=== PATIENT | male | born 1970 | race Caucasian/White ===

== ENCOUNTER 2024-12-29 01:00 | Inpatient (IN) | payer OTHER ==
[~2024-12-29] VITALS: Ht 185.4 cm; Wt 107.4 kg
[2024-12-29 01:29] LABS: BASOPHILS # (AUTO) 0.1 K/uL (0.0-0.2); BASOPHILS % (AUTO) 0.8 % (0.0-2.0); EOSINOPHILS # (AUTO) 0.2 K/uL (0.0-0.7); EOSINOPHILS % (AUTO) 2.1 % (0.0-6.0); HEMATOCRIT 49 % (39-51); HEMOGLOBIN 16.7 g/dL (13.5-17.5); LYMPHOCYTES # (AUTO) 3.4 K/uL (0.8-4.8); LYMPHOCYTES % (AUTO) 34.7 % (20.0-44.0); MEAN CORPUSCULAR HEMOGLOBIN 31 PG (26.0-33.0); MEAN CORPUSCULAR HGB CONC 34 g/dl (31.0-36.0); MEAN CORPUSCULAR VOLUME 92 fL (80-96); MONOCYTES # (AUTO) 0.7 K/uL (0.1-1.30); MONOCYTES % (AUTO) 7.4 % (2.0-12.0); NEUTROPHILS # (AUTO) 5.3 K/uL (1.8-8.9); PLATELET COUNT (AUTO) 229 K/uL (150-450); RED BLOOD CELL COUNT(AUTO) 5.33 MIL/uL (4.5-6.0); RED CELL DISTRIBUTION WIDTH 13.5 % (11.5-15.0); WHITE BLOOD COUNT (AUTO) 9.7 K/uL (4.3-11.0)
[2024-12-29] MEDS ORDERED: METOPROLOL TARTRATE INJ 5 MG/5 ML AMPUL ONE (01:46)
[2024-12-29] MEDS ORDERED: METOPROLOL TARTRATE 25 MG TABLET ONE (01:47)
[2024-12-29 01:55] LABS: CALCIUM, SERUM 9.7 mg/dL (8.5-10.1); CARBON DIOXIDE 30 mmol/L (21-32); CHLORIDE 100 mmol/L (98-107); CREATININE 1.1 mg/dL (0.6-1.3); GLUCOSE 266 mg/dL (74-106); POTASSIUM 3.9 mmol/L (3.5-5.1); SODIUM SERUM 141 mmol/L (136-145); UREA NITROGEN, BLOOD 14 mg/dL (7-18)
[2024-12-29] MEDS: METOPROLOL TARTRATE 25 MG TABLET PO ONE (02:00)
[2024-12-29] MEDS: METOPROLOL TARTRATE INJ 5 MG/5 ML AMPUL IV ONE (02:00)
[2024-12-29] MEDS ORDERED: IOHEXOL-350 100 ML VIAL IV ONE (02:01)
[2024-12-29] MEDS ORDERED: IV NS 0.9% 250 ML IV ONE (02:02)
[2024-12-29 02:08] LABS: ALANINE AMINOTRANSFERASE 93 U/L (12-78); ALBUMIN 4.2 g/dL (3.4-5.0); ALKALINE PHOSPHATASE 94 U/L (46-116); ASPARTATE AMINOTRANSFERASE 42 U/L (15-37); BILIRUBIN,DIRECT 0.1 mg/dL (0.0-0.2); BILIRUBIN,TOTAL 0.5 mg/dL (0.2-1.0); NT-PRO BNP 2131 pg/mL (0-125); TOTAL PROTEIN, SERUM 7.7 g/dL (6.4-8.2)
[2024-12-29] MEDS: FUROSEMIDE 40 MG/4 ML VIAL IV ONE (02:30)
[2024-12-29] MEDS: ASPIRIN 325 MG TABLET PO ONE (02:30)
[2024-12-29] MEDS ORDERED: METF-442 PO (04:56)
[2024-12-29] MEDS ORDERED: EMPA10TA PO (04:56)
[2024-12-29] MEDS ORDERED: APIX5TAB PO (04:56)
[2024-12-29] MEDS ORDERED: GLARGINE (04:56)
[2024-12-29] MEDS ORDERED: METO25TA4 PO (04:56)
[2024-12-29] MEDS ORDERED: FURO-145 PO (04:56)
[2024-12-29] MEDS ORDERED: MAG HYDROX/AL HYDROX/SIMETH 30 ML UDC PO PRN (05:00)
[2024-12-29] MEDS ORDERED: ACETAMINOPHEN 325 MG TABLET PO PRN (05:00)
[2024-12-29] MEDS ORDERED: DEXTROSE 50%-WATER 50 ML DISP.SYRIN IV PRN (05:00)
[2024-12-29] MEDS ORDERED: ONDANSETRON HCL/PF 4 MG/2 ML VIAL IVP PRN (05:00)
[2024-12-29] MEDS ORDERED: MAGNESIUM HYDROXIDE 30 ML UDC PO PRN (05:00)
[2024-12-29] MEDS: BLOOD SUGAR DIAGNOSTIC 1 EACH STRIP IN SCH (09:00)
[2024-12-29] MEDS: APIXABAN 5 MG TABLET PO SCH (09:44)
[2024-12-29] MEDS: EMPAGLIFLOZIN 10 MG TABLET PO SCH (10:04)
[2024-12-29] MEDS: METOPROLOL SUCCINATE 25 MG TAB.SR.24H PO SCH (10:05)
[2024-12-29] MEDS: INSULIN REGULAR, HUMAN 100 UNIT/ML 3 ML VIAL SQ PRN (11:20)
[2024-12-29 12:03] VITALS: BP 111/88; TEMP 98.1
[2024-12-29 16:00] VITALS: BP 105/76; TEMP 98.2; O2SAT 96
[2024-12-29] MEDS: FUROSEMIDE 40 MG/4 ML VIAL IV SCH (18:37)
[2024-12-29 20:00] VITALS: BP 103/82; TEMP 98.2; O2SAT 94; O2SAT 96
[2024-12-30] VITALS: BP 99/69; TEMP 98; O2SAT 97
[2024-12-30 05:00] VITALS: BP 100/80; TEMP 98.2; O2SAT 95
[2024-12-30 06:31] LABS: BASOPHILS # (AUTO) 0.1 K/uL (0.0-0.2); BASOPHILS % (AUTO) 0.8 % (0.0-2.0); EOSINOPHILS # (AUTO) 0.2 K/uL (0.0-0.7); EOSINOPHILS % (AUTO) 3.3 % (0.0-6.0); HEMATOCRIT 44 % (39-51); HEMOGLOBIN 14.9 g/dL (13.5-17.5); LYMPHOCYTES # (AUTO) 2.8 K/uL (0.8-4.8); LYMPHOCYTES % (AUTO) 37.5 % (20.0-44.0); MEAN CORPUSCULAR HEMOGLOBIN 31 PG (26.0-33.0); MEAN CORPUSCULAR HGB CONC 34 g/dl (31.0-36.0); MEAN CORPUSCULAR VOLUME 91 fL (80-96); MONOCYTES # (AUTO) 0.6 K/uL (0.1-1.30); MONOCYTES % (AUTO) 7.7 % (2.0-12.0); NEUTROPHILS # (AUTO) 3.8 K/uL (1.8-8.9); NEUTROPHILS % (AUTO) 50.7 % (43.0-81.0); PLATELET COUNT (AUTO) 206 K/uL (150-450); RED CELL DISTRIBUTION WIDTH 13.2 % (11.5-15.0); WHITE BLOOD COUNT (AUTO) 7.5 K/uL (4.3-11.0)
[2024-12-30 06:48] LABS: CREATININE 0.6 mg/dL (0.6-1.3); MAGNESIUM 1.7 mg/dL (1.8-2.4); PHOSPHORUS 6.2 mg/dL (2.5-4.9); POTASSIUM 3.6 mmol/L (3.5-5.1)
[2024-12-30 08:00] VITALS: BP 107/69; TEMP 98.1; O2SAT 95
[2024-12-30] MEDS ORDERED: FUROSEMIDE 40 MG/4 ML VIAL IV SCH (09:00)
[2024-12-30 12:00] VITALS: BP 97/81; TEMP 98.2; O2SAT 97
[2024-12-30] MEDS: MAGNESIUM OXIDE 400 MG TABLET PO ONE (12:36)
[2024-12-30 16:00] VITALS: BP 101/69; TEMP 97.7; O2SAT 99
[2024-12-30 20:00] VITALS: BP 101/83; TEMP 98.1; O2SAT 97
[2024-12-31] VITALS: BP 102/72; TEMP 98.1; O2SAT 95
[2024-12-31 04:00] VITALS: BP 94/77; TEMP 97.9; O2SAT 97
[2024-12-31 07:33] LABS: CALCIUM, SERUM 8.8 mg/dL (8.5-10.1); CREATININE 0.7 mg/dL (0.6-1.3); MAGNESIUM 2.1 mg/dL (1.8-2.4); POTASSIUM 3.8 mmol/L (3.5-5.1)
[2024-12-31 08:00] VITALS: BP 102/83; TEMP 98.1; O2SAT 95
[2024-12-31 08:51] VITALS: BP 102/81
[2024-12-31] MEDS ORDERED: METO25TA4 PO (09:29)
[2024-12-31] MEDS ORDERED: EMPA10TA PO (09:29)
[2024-12-31] MEDS ORDERED: APIX5TAB PO (09:29)
[2024-12-31] MEDS ORDERED: GLARGINE (09:29)
[2024-12-31] MEDS ORDERED: FURO-145 PO (09:29)
[2024-12-31] MEDS ORDERED: METF-442 PO (09:29)
[2024-12-31] MEDS ORDERED: INSU100V7 SQ (09:33)
[2024-12-31] MEDS ORDERED: SPIR25TA PO (09:35)
[2024-12-31] MEDS ORDERED: FURO40TA5 PO (09:35)
== END 2024-12-31 10:20 | disposition home or self-care (01) | DRG 309 ==
LOC: ER 01:16 → TELE 08:04
PROVIDERS: ADMIT Internal Medicine; ATTEND Internal Medicine
DX: I48.91 Unspecified atrial fibrillation (principal); I50.22 Chronic systolic (congestive) heart failure; I42.0 Dilated cardiomyopathy; I11.0 Hypertensive heart disease with heart failure; E11.9 Type 2 diabetes mellitus without complications; Z79.01 Long term (current) use of anticoagulants; R74.01 Elevation of levels of liver transaminase levels
CPT/HCPCS: 36415; 71045-TC; 80048-TC; 80076-TC; 82962-TC; 83735-TC; 83880; 84100-TC; 84484-TC; 85025-TC; 87081-TC; 93307-TC; G0378; J1815; J1938; J3490; J7050; Q9967